=== PATIENT | female | born 1965 | race African-American/Black ===

== ENCOUNTER → 2024-04-23 15:03 | Outpatient (REF) | payer OTHER, SELFPAY | LOC: RAD 15:03 | PROVIDERS: ATTENDING PHYSICIAN Nurse Practitioner Adult Health; FAMILY PHYSICIAN Nurse Practitioner Adult Health | DX: M54.2 Cervicalgia (principal) | CPT/HCPCS: 72040 ==

== ENCOUNTER → 2024-05-17 15:32 | Outpatient (REF) | payer OTHER, SELFPAY | LOC: RAD 15:32 | PROVIDERS: ATTENDING PHYSICIAN Nurse Practitioner Adult Health | DX: M25.511 Pain in right shoulder (principal) | CPT/HCPCS: 73030 ==

== ENCOUNTER 2024-06-11 03:00 | Inpatient (IN) | payer OTHER, SELFPAY ==
[2024-06-10 20:27] VITALS: BMI 23.1
[2024-06-10 20:50] VITALS: BP 130/81
[2024-06-10 21:14] LABS: Urine Albumin 3+ (Neg - Trace); Urine Bilirubin Negative (Negative); Urine Character Slightly Cloudy (Clear); Urine Color Amber; Urine Glucose 4+ (Negative); Urine Ketone 2+ (Negative); Urine Leukocyte 3+ (Negative); Urine Nitrite Positive (Negative); Urine Occult Blood 4+ (Negative); Urine Urobilinogen 1+ (Neg - 1+)
[2024-06-10 21:16] LABS: % Basophils 0.4 % (0-2); % Eosinophils 0.4 % (0-6); % Immature Granulocytes 0.4 % (0-0.5); % Lymphocytes 8.5 % (20.5-51.1); % Monocytes 12.9 % (1.7-9.3); % Neutrophils 77.4 % (42.2-75.2); Absolute Basophils 0.1 10^3/uL (0-0.2); Absolute Eosinophils 0.1 10^3/uL (0-0.7); Absolute Immature Granulocytes 0.1 10^3/uL (0-0.05); Absolute Lymphocytes 1.1 10^3/uL (1.2-3.4); Absolute Monocytes 1.7 10^3/uL (0.1-0.6); Absolute Neutrophils 10.4 10^3/uL (1.4-6.5); Hematocrit 37.2 % (37.0-47.0); Hemoglobin 12.8 g/dL (12.0-16.0); Mean Corp Hgb Conc. 34.4 g/dL (33.0-37.0); Mean Corpuscular Hgb 27.8 pg (27.0-31.0); Mean Corpuscular Volume 80.9 fL (81.0-99.0); Nucleated Red Blood Cells % 0 %; Platelet Count 206 10^3/uL (130-400); Red Cell Dist. Width 14.6 % (11.5-14.5); White Blood Cell Count 13.5 10^3/uL (4.8-10.8)
[2024-06-10 21:22] LABS: Urine Red Blood Cell >100 /HPF (0-2); Urine Squamous Cell 0-2 /LPF (Few); Urine White Cell >100 /HPF (0-5)
[2024-06-10 21:23] LABS: Urine Amorphous Seen; Urine Bacteria Few (Negative); Urine Yeast Few (Negative)
[2024-06-10 21:40] LABS: ALT (SGPT) 79 U/L (0-35); AST (SGOT) 64 U/L (14-36); Albumin 3.7 g/dl (3.5-5.0); Alkaline Phosphatase 257 U/L (38-126); Blood Urea Nitrogen 23 mg/dl (7-17); Calcium 9.4 mg/dl (8.4-10.2); Carbon Dioxide 27 mmol/L (22-30); Chloride 99 mmol/L (98-107); Glucose 122 mg/dl (70-99); Lipase 341 U/L (23-300); Potassium 3.9 mmol/L (3.5-5.1); Sodium 137 mmol/L (135-145); Total Bilirubin 1.5 mg/dl (0.2-1.3); eGFR 58.24
[2024-06-10 23:05] VITALS: BP 143/68
[2024-06-10 23:29] LABS: Lactic Acid 1.2 mmol/L (0.7-2.0)
[2024-06-10] MEDS: NSS 1000 IV (23:40)
--- NOTE | 2024-06-10 23:41 | ED.GENMED ---
History of Present Illness
General
Chief Complaint: Urinary Symptoms
Source: patient and spouse
Time Seen by Provider: 06/10/24 22:07
History of Present Illness
History of Present Illness:
This is a 58-year-old female with a history of diabetes and hypertension who presents with subjective fevers, low back pain, nausea and bodyaches. She also has had some flank pain. Denies dysuria but admits to hematuria. Patient has had nausea
but no significant vomiting. Has never had a UTI in the past. No injury. She also has been weak
Past History
Past History
ED Past Medical History: HTN and NIDDM
Phy Exam
Physical Exam
Physical Exam:
CONSTITUTIONAL Patient alert and oriented to person, place and time. Well-appearing. Vital signs reviewed. Temperature 101.4 on my exam
HEAD atraumatic, normocephalic.
EYES eyelids normal to inspection, Extraocular muscles intact, Conjunctiva normal, Sclera normal.
NECK normal range of motion, Trachea midline, no jugular venous distention.
RESPIRATORY CHEST No respiratory distress noted, Chest expansion equal, Bilateral breath sounds clear.
CARDIOVASCULAR regular tachycardia
ABDOMEN abdomen nontender, Bowel sounds normal. No distention.
BACK normal inspection, no obvious deformities, no true CVA tenderness
UPPER EXTREMITY range of motion normal, Motor strength normal, no cyanosis, no edema.
LOWER EXTREMITY range of motion normal, Motor strength normal, no cyanosis, no edema.
NEURO Speech normal, No focal motor deficits, [place] coma scale 15, Memory normal, Cranial Nerves intact to screening exam.
SKIN skin warm, dry, and normal in color.
Course
Orders/Labs/Results
Orders:
Orders
06/10/24 21:03
IV Insert/Care/Rem.- Treatment PRN
Straight cath- Treatment ONCE
06/10/24 21:07
Complete Blood Count/With Diff Urgent
Comprehensive Metabolic Panel Urgent
Lipase Urgent
Urinalysis Reflex To Culture Urgent
Date Specimen was Collected: 06/10/24
Time Specimen was Collected: 21:03
Urine Microscopic Reflex Cult Urgent
Urine Culture Urgent
MARLENE Source: U
Specimen Description:
Date Specimen was Collected: 06/10/24
Time Specimen was Collected: 21:03
06/10/24 22:41
0.9% Sodium Chloride 1000 ml [Nss] 1,000 ml IV BOLUS
Acetaminophen [Tylenol] 1,000 mg PO NOW STA
06/10/24 23:07
Lactic Acid Q4H
Comment: CANCEL 2nd LACTIC ACID IF 1st LACTIC ACID IS LESS THAN 2
Blood Culture Q30M
MARLENE Source: Blood/Venous
Specimen Description:
06/10/24 23:14
CefTRIAXone [Rocephin] 2,000 mg IV NOW STA
06/10/24 23:25
Blood Culture Q30M
MARLENE Source: Blood/Venous
Specimen Description:
Sterile Water [Sterile Water For Injection] 20 ml IV NOW STA
06/11/24 00:01
CT Abd/pel Without Iv Or Oral Urgent
Reason For Exam: flank pain, fever
06/11/24 02:38
Admit/Transfer Patient As Directed
Co-Sign Provider:
Level of Care: Inpatient admission
Assign to:: Medical/Surgical
Physician / Group: Mike
Diagnosis: Pyelonephritis / Sepsis
Reason for Hospitalization: Pyelonephritis / Sepsis
Expected length of stay greater than two midnights?: Yes
ELOS- Estimated Length of Stay in days: 2
I certify the patient meets the requirements for IP care: Yes
PRN Pain Medication Management As Directed
May give lesser potent ordered pain med per pt: Yes
preference::
Protocol:: Medication orders for pain may be administered in a
manner that supports deferring to patient preference
when the pt is:
- Requesting an ordered lesser potent pain medication.
Least to most potent pain medications are defined
as: acetaminophen < NSAID < tramadol < opioids
(morphine, oxycodone, hydromorphone).
- Requesting a lesser dose of the same medication IF
ORDERED.
- Requesting a less intrusive route of administration
if both routes are prescribed by the provider (PO <
IV).
06/11/24 02:39
Code Status As Directed
Resuscitation Status: Full Code
06/11/24 03:54
0.9% Sodium Chloride 1000 ml [Nss] 1,000 ml IV 125 mls/hr
Acetaminophen [Tylenol] 650 mg PO Q4HPRN PRN
Dextrose 50%-Water [Dextrose 50% Syringe] 12.5 grams IV [id number] PRN
Glucagon [GlucaGen] 1 mg IM PRN PRN
Ketorolac [Toradol] 10 mg IV Q6HPRN PRN
Ondansetron Injectable [Zofran] 4 mg IV Q6HPRN PRN
06/11/24 03:54
Activity As Directed
Activity Level: Ambulate
Bedside Glucose Monitoring As Directed
Frequency: AC&HS
Additional Instructions:: Change to q6h if pt on TPN, tube feeding or not eating
I/O [Intake/ Output] As Directed
Frequency: Per unit guidelines
Pneumatic Compression Sleeves As Directed
Type: Knee high
Vital Signs As Directed
Frequency: Per unit guidelines
DX Deep Vein Thrombosis Video Routine
06/11/24 04:49
Basic Metabolic Panel IN AM
Glycohemoglobin (HgbA1c) IN AM
06/11/24 Breakfast
2000 calorie (17 carb) Diabetic
At Your Request: Full Participation
Does patient need a safe tray?: No
06/11/24 07:30
Insulin Aspart Corrective Low [Novolog Flexpen-Low Resistance] See Protocol SC AC
06/11/24 22:00
Atorvastatin [Lipitor] 40 mg PO HS
CefTRIAXone [Rocephin] 1,000 mg IV Q24H
Clonidine [Catapres] 0.2 mg PO HS
Abnormal Lab Results
06/10/24
21:07
WBC 13.5 H 10^3/uL
(4.8-10.8)
MCV 80.9 L fL
(81.0-99.0)
RDW 14.6 H %
(11.5-14.5)
Abs Immat Gran (auto) 0.1 H 10^3/uL
(0-0.05)
Absolute Neuts (auto) 10.4 H 10^3/uL
(1.4-6.5)
Absolute Lymphs (auto) 1.1 L 10^3/uL
(1.2-3.4)
Absolute Monos (auto) 1.7 H 10^3/uL
(0.1-0.6)
Neutrophils % 77.4 H %
(42.2-75.2)
Lymphocytes % 8.5 L %
(20.5-51.1)
Monocytes % 12.9 H %
(1.7-9.3)
BUN 23 H mg/dl
(7-17)
Creatinine 1.1 H mg/dL
(0.6-1.0)
Glucose 122 H mg/dl
(70-99)
Total Bilirubin 1.5 H mg/dl
(0.2-1.3)
AST 64 H U/L
(14-36)
ALT 79 H U/L
(0-35)
Alkaline Phosphatase 257 H U/L
(38-126)
Lipase 341 H U/L
(23-300)
Urine Ketones 2+ A
(Negative)
Ur Occult Blood Reflex 4+ A
(Negative)
Urine Nitrite (Reflex) Positive A
(Negative)
Leukocyte Esterase Rfl 3+ A
(Negative)
Urine RBC >100 A /HPF
(0-2)
Urine WBC (Reflex) >100 A /HPF
(0-5)
Urine Bacteria (Reflex) Few A
(Negative)
Urine Yeast Few A
(Negative)
Urine Glucose 4+ A
(Negative)
Urine Albumin (Reflex) 3+ A
(Neg - Trace)
06/10/24 21:07
06/10/24 21:07
Vital Signs
Initial and Last Documented VS:
Initial Vital Signs
Temp Pulse Resp BP Pulse Ox
100.2 F 104 20 130/81 98
06/10/24 20:50 06/10/24 20:50 06/10/24 20:50 06/10/24 20:50 06/10/24 20:50
Last Documented Vital Signs
Temp Pulse Resp BP Pulse Ox
98.9 F 88 18 130/70 96
06/11/24 03:00 06/11/24 03:00 06/11/24 03:00 06/11/24 03:00 06/11/24 03:30
MDM/Problems Addressed
MDM/Problems Addressed:
Urinary tract infection, diabetes
*Radiology
Radiology exam reviewed: preliminary read by ED provider (No free air and no obvious hydronephrosis) and radiology read reviewed
*Pulse Oximetry
Patient hypoxic: no
*Critical Care Note
Total Time (30-74mins, 75-104mins- exclusive of procedures): Not Applicable
Data Reviewed
Source: patient and spouse
Patient Management
Discussion with other providers: Hospitalist
Escalation/DeEscalation of care consider admission/obs:
50-year-old female presents with fevers and bodyaches. Found to have UTI suspect pyelonephritis. In light of being a diabetic I think admission for IV antibiotics is reasonable and safe. Blood culture sent. Blood pressure currently stable. On
reassessment feels mostly unchanged but does feel little bit better. No obstructive process by CAT scan
ED Attending Note
-
Portions of this chart may have been created with voice recognition software.� Occasional wrong word or��sound alike� substitutions may have occurred due to the inherent limitations of voice recognition software.
Discharge Plan
Departure
Patient Disposition: Admit
Date of Disposition: 06/11/24
Time of Disposition: 01:40
Admit to: Med/Surg
Presentation/result/management discussed w/ accepting MD/DO: Hospitalist
Discharge Problem:
Pyelonephritis, Diabetes
Interventions
Interventions:
*Risk Screen - Suicide Last Done: 06/10/24 20:50
*General Assessment Last Done: 06/10/24 20:50
*Neglect/Abuse Screening Last Done: 06/10/24 20:50
*ED- Fall Risk Assessment Last Done: 06/10/24 20:50
*ED COVID-19 Vaccine History Last Done: 06/10/24 20:50
ED-Female Genitourinary Assessment Last Done: 06/11/24 00:10
[2024-06-10] MEDS: ROCEPHIN 2000 MG IV (23:47)
[2024-06-10] MEDS: TYLENOL 1000 MG PO (23:47)
[2024-06-10] MEDS: STERILE WATER FOR INJECTION 20 ML IV (23:48)
[2024-06-11] VITALS (10 sets, daily range): BP systolic 111–153; BP diastolic 67–87; BMI 22.3
--- NOTE | 2024-06-11 02:43 | HPS.HSE ---
Family Physician
-
Family Physician: Betina Rivero
Chief Complaint
-
Fever / Flank Pain
History of Present Illness
Patient is a 58y F with PMH significant for hypertension and DM-II who presents to ED complaining of L flank pain, hematuria, fever and malaise. Patient states that her symptoms started initially on when she noted some blood in the
urine. She had no dysuria, frequency, etc. Over the next few days, patient developed generalized malaise, fatigue and L flank discomfort. She had nausea, shaking chills and fever at home. With persistent symptoms she presented to the ED for
further evaluation.
Medical History
Past Medical History
Past Medical History: Reports Other
Additional Past Medical History:
Hypertension
DM-II
Past Surgical History: Reports None
Social History
Tobacco: Smoker (Current some day smoker. < 20 pack years total.)
Alcohol: Occasional
Drug: None
Personal:
Living: With Family
Family History
Family History: Other (Father: DM Mother: DM, ESRD)
Allergies / Home Medications
Allergies reflects when Allergies were last updated in [facility].
Home Medications with original date entered in [facility]
Allergy/Medication List:
Allergies
Allergy/AdvReac Type Severity Reaction Status Date / Time
Penicillins Allergy Unknown Unknown Verified 06/10/24 23:15
Home Medications
atorvastatin 40 mg tablet 40 mg PO HS 06/11/24
bisoprolol 10 mg-hydrochlorothiazide 6.25 mg tablet 1 tab PO DAILY 06/11/24
clonidine HCl 0.2 mg tablet 0.2 mg PO HS 06/11/24
empagliflozin 25 mg tablet (Jardiance) 25 mg PO DAILY 06/11/24
metformin 500 mg tablet,extended release 24hr (osmotic) 500 mg PO BID 06/11/24
semaglutide 0.25 mg or 0.5 mg (2 mg/3 mL) subcutaneous pen injector (Ozempic) 0.5 mg SC QWEEK 06/11/24
Review of Systems
-
History Source: Patient
A 12 point ROS was completed and negative except as noted: Yes
Constitutional: Reports Fever, Fatigue and Chills
EENT: Denies Sore Throat
Respiratory: Denies Cough or Trouble Breathing
Cardiac: Denies Chest Pain or Palpitations
Abdomen/GI: Reports Nausea; Denies Abdominal Pain, Vomiting, Diarrhea, Constipated, Bloody Stools or Black Stools
: Reports Flank Pain and Bleeding; Denies Dysuria or Frequency
Musculoskeletal: Denies Joint Pain or Edema
Neurological: Denies Dizzy or Headache
Psych: Denies Depression or Anxiety
Physical Exam
Vital Signs
Vital Signs
Temp Pulse Resp BP Pulse Ox
98.8 F 94 18 127/67 96
06/11/24 01:57 06/11/24 01:57 06/11/24 01:57 06/11/24 01:57 06/11/24 01:57
Physical Exam
General: Other (58y F in no acute distress.)
HEENT: Moist mucous membranes and PERRLA
Respiratory: Clear; No Wheezes, Rales or Rhonchi
Cardiac: S1/S2 and Regular Rhythm; No Murmur
GI: Soft, Non Tender, Non Distended and Normal Bowel Sounds
Genito-urinary: No costovertebral tender
Musculoskeletal: No Clubbing, No Cyanosis and No Edema
Neuro: AO x 3
Laboratory Results
-
06/10/24 21:07
06/10/24 21:07
Laboratory Results
Lactic Acid Cancelled 06/11/24 02:45
Total Bilirubin 1.5 mg/dl (0.2-1.3) H 06/10/24 21:07
AST 64 U/L (14-36) H 06/10/24 21:07
ALT 79 U/L (0-35) H 06/10/24 21:07
Alkaline Phosphatase 257 U/L (38-126) H 06/10/24 21:07
Lipase 341 U/L (23-300) H 06/10/24 21:07
Impression/Plan
-
A/P: Patient is a 58y F with PMH significant for HTN and DM-II who presents to ED for evaluation of hematuria, flank pain and fevers / chills.
Left Pyelonephritis
Sepsis secondary to the above
- Admit for further evaluation and treatment.
- Patient presents with fever, tachycardia, leukocytosis and UA / imaging consistent with pyelonephritis.
- IV abx with ceftriaxone pending urinary cultures.
- Supportive care including IVFs, antipyretics, pain control, etc.
- Follow for clinical improvement.
Benign Hypertension
- Stable on multidrug regimen.
- Continue current medications with holding parameters.
DM-II
- Stable. Hold PO medications acutely.
- Follow glucose and cover with SSI as needed.
- Update A1C.
Abnormal LFTs
- Unclear etiology of LFT abnormalities - ? med effect from Ozempic, etc.
- Imaging in the ED with no biliary / hepatic abnormalities.
- Follow for any changes in labs or development of any new symptoms.
DVT Prophylaxis: SCDs
Code Status: Full
[2024-06-11 05:23] LABS: Blood Urea Nitrogen 23 mg/dl (7-17); Calcium 8.4 mg/dl (8.4-10.2); Carbon Dioxide 22 mmol/L (22-30); Chloride 103 mmol/L (98-107); Estimated Creatinine Clearance 60 ml/min; Glucose 156 mg/dl (70-99); Potassium 3.5 mmol/L (3.5-5.1); Sodium 138 mmol/L (135-145); eGFR > 60.00
[2024-06-11] MEDS: NSS 1000 IV ×3 (05:30→18:09)
[2024-06-11 05:34] LABS: Hematocrit 29.9 % (37.0-47.0); Hemoglobin 10.5 g/dL (12.0-16.0); Mean Corp Hgb Conc. 35.1 g/dL (33.0-37.0); Mean Corpuscular Hgb 28.2 pg (27.0-31.0); Mean Corpuscular Volume 80.2 fL (81.0-99.0); Mean Platelet Volume 10.1 fL (7.4-10.4); Platelet Count 166 10^3/uL (130-400); Red Blood Cell Count 3.73 10^6/uL (4.20-5.40); Red Cell Dist. Width 14.6 % (11.5-14.5); White Blood Cell Count 12.4 10^3/uL (4.8-10.8)
[2024-06-11 08:21] LABS: Glycohemoglobin (HgbA1c) 6.3 % (4.0-5.6)
[2024-06-11 08:37] LABS: Glucose - Point of Care 125 mg/dl (70-99)
[2024-06-11] MEDS: NOVOLOG FLEXPEN-LOW RESISTANCE SC ×3 (08:38→18:08)
[2024-06-11] MEDS: ORETIC 6.25 MG PO (08:39)
[2024-06-11] MEDS: ZEBETA 10 MG PO (08:39)
[2024-06-11] MEDS: TYLENOL 650 MG PO ×2 (08:41→18:19)
--- NOTE | 2024-06-11 10:28 | PTCARENOTE ---
pt admitted to [facility] hold, awaiting bed. AOx3 c/o mild flank pain. LCTA b/l on RA. rrr, abd soft nt +bsx4 skin cdi, no edema +pp b/l. call morrison in reach. PRN tylenol administered for pain. See MAR
[2024-06-11 13:01] LABS: Glucose - Point of Care 127 mg/dl (70-99)
--- NOTE | 2024-06-11 13:29 | PTCARENOTE ---
pt transferred to , report tubed to floor.
--- NOTE | 2024-06-11 14:30 | W.PN.HOSP.TC ---
Addendum entered and electronically signed by Liane Murray MD 06/11/24 15:06:
I saw and evaluated the patient independently. I reviewed the resident�s note and agree with findings and plan as documented by Dr. Garcia.
GENERAL: well developed, well nourished, female in no apparent distress
HEENT: NC/AT--no O2 requirements
HEART: regular rate and rhythm, +S1, +S2
LUNGS : clear to auscultation bilaterally
ABDOM: soft, nontender, nondistended, + bowel sounds
EXT: no cyanosis, clubbing, or edema
NEUROLOGIC: grossly intact
: no flank tenderness
Sepsis on presentation secondary to left sided pyelonephritis/ascending UTI--CT abdomen/pelvis findings consistent with pyelonephritis or ascending UTI--cont ceftriaxone--await cultures
Essential hypertension--Continue current therapy with clonidine, bisoprolol fumarate, hydrochlorothiazide--Blood pressures currently managed well
Type 2 diabetes--Hb A1c at 6.3%--Sliding scale insulin as needed, Accu-Cheks--Holding home medications of Jardiance, metformin--Also started on Ozempic recently
Elevated LFTs--Possibly secondary from sepsis--Might also be contributed to by her medications including Ozempic, metformin--Continue monitoring CMP and trend LFTs for now
DVT proph--SCDs
Code status--Full code
Original Note:
Today's Communication/Plan
-
Continue with IV fluids and antibiotic treatment. Continue supportive measures. Continue monitoring sugar levels and give insulin as needed.
Assessment / Plan
Assessment / Plan
Assessment:
50-year-old female with a past medical history of hypertension and type 2 diabetes presented to the [facility] ED on 06/10/24 due to recent history of increased left flank plain, hematuria, fever and malaise. The symptoms had started
initially last week when she noticed some blood in her urine. This continued to get worse and she developed left flank pain over the weekend along with her fever and general fatigue and malaise. In the ED she was found to have fever, be
tachycardic, and have leukocytosis. On the CT abdomen/pelvis, she was found to have mild perinephric stranding surrounding the left kidney which were consistent with possible pyelonephritis/ascending urinary tract infection. Patient was started on
ceftriaxone and IV fluids in the ED and admitted to the hospital. Currently after treatment patient is feeling much better and reports that her symptoms are much improved.
CT Abd/pel Without Iv Or Oral (06/11/2024):
1. Mild perinephric stranding surrounding the left kidney, and stranding surrounding the proximal left ureter. No hydronephrosis or stone. Findings may related to pyelonephritis/ascending urinary tract infection.
2. Mild wall thickening involving the urinary bladder, which may be related to nondistention or mild cystitis.
3. Colonic diverticulosis without evidence of diverticulitis.
4. Cholelithiasis without evidence of acute cholecystitis.
Plan:
# Sepsis on presentation secondary to left sided pyelonephritis/ascending UTI
-Patient presented with fever/tachycardia/leukocytosis and met the criteria for sepsis
-CT abdomen/pelvis findings as above, consistent with pyelonephritis or ascending UTI
-Patient started on IV antibiotics with ceftriaxone pending urinary cultures
-Awaiting blood cultures as well
-Patient to continue with IV fluid therapy along with antinausea medications, and pain control
-Patient able to tolerate diet, we will continue
# Benign hypertension
-Continue current therapy with clonidine, bisoprolol fumarate, hydrochlorothiazide
-Blood pressures currently managed well
# Type 2 diabetes
-Hb A1c at 6.3%
-Sliding scale insulin as needed, Accu-Cheks
-Holding home medications of Jardiance, metformin
-Also started on Ozempic recently
# Elevated LFTs
-Possibly secondary from sepsis
-Might also be contributed to by her medications including Ozempic, metformin
-Continue monitoring CMP and trend LFTs for now
DVT prophylaxis: SCDs
Full code
Anticipated Discharge: 24 - 48 hours
Subjective/Interval History
-
Date of Service: June 11, 2024
Patient was feeling much better when seen in the ED this morning. Reported that her flank pain has gotten much better and she no longer has any fever. Reports no nausea or vomiting at this time either and is available to tolerate food. Reports
that her flank pain has reduced now to around 2/10.
Objective Data
-
Labs:
Laboratory Results
06/11/24 06/11/24
04:49 05:22
WBC Cancelled 12.4 H
Hgb Cancelled 10.5 L
Hct Cancelled 29.9 L
Plt Count Cancelled 166
Sodium 138
Potassium 3.5
Chloride 103
Carbon Dioxide 22
BUN 23 H
Creatinine 1.0
Glucose 156 H
Calcium 8.4
Vital Signs:
Vital Signs
Temp Pulse Resp BP Pulse Ox
97.8 F 82 18 131/76 98
06/11/24 14:00 06/11/24 14:00 06/11/24 14:00 06/11/24 14:00 06/11/24 14:00
Review of Systems
-
History Source: Patient
Constitutional: Denies Fever, Fatigue, Chills or Weakness
EENT: Reports No Symptoms Reported
Respiratory: Denies Cough, Trouble Breathing or Wheezing
Cardiac: Denies Chest Pain, Diaphoresis or Palpitations
Abdomen/GI: Denies Abdominal Pain, Nausea, Vomiting or Diarrhea
Genitourinary: Reports Flank Pain (Around 2 out 10 in intensity around her left side)
Musculoskeletal: Reports No Symptoms
Skin: Reports No Symptoms
Neuro: Denies Headache, Weakness or Lightheadedness
Physical Exam
-
General: Well Developed, Well Nourished, No Apparent Distress, Comfortable and Conversant
HEENT: Normocephalic and Atraumatic
Respiratory: Clear to Auscultation and Non Labored Respirations
Cardiac: Regular Rhythm and S1/S2
GI: Soft, Nontender and Nondistended
Genito-urinary: Costovertebral Angle Tend (2 out of 10 intensity of pain in the left flank)
Musculoskeletal: No Clubbing, No Cyanosis and No Edema
Skin: Warm
Neuro: Awake, Alert and Oriented
Psych: Calm
Data Reviewed
-
CT Scan: Report Reviewed by me, Discussed with Physician and Discussed with Patient
Labs: Labs Reviewed by me, Discussed with Physician and Discussed with Patient
--- NOTE | 2024-06-11 16:23 | CM ---
Patient seen at bedside in ED with physicians. Patient now moving to [address]. Patient states that she lives with her . Patient has 2 story home, no DME. Patient now independent living with is her discharge plan. CM will continue to
follow for discharge planning needs.
Plan; home with no needs anticipated.
[2024-06-11 16:30] LABS: Glucose - Point of Care 129 mg/dl (70-99)
[2024-06-11] MEDS: KCL 40 MEQ PO (18:08)
[2024-06-11] MEDS: CATAPRES 0.2 MG PO (20:57)
[2024-06-11] MEDS: LIPITOR 40 MG PO (20:57)
[2024-06-11] MEDS: ROCEPHIN 1000 MG IV (21:00)
[2024-06-11] MEDS: STERILE WATER FOR INJECTION 10 ML IV (21:00)
[2024-06-11 21:05] LABS: Glucose - Point of Care 160 mg/dl (70-99)
[2024-06-12] MEDS: NSS 1000 IV (03:38)
[2024-06-12 06:48] LABS: Hematocrit 30.2 % (37.0-47.0); Hemoglobin 10.1 g/dL (12.0-16.0); Mean Corp Hgb Conc. 33.4 g/dL (33.0-37.0); Mean Corpuscular Hgb 27.5 pg (27.0-31.0); Mean Corpuscular Volume 82.3 fL (81.0-99.0); Mean Platelet Volume 10.4 fL (7.4-10.4); Platelet Count 167 10^3/uL (130-400); Red Blood Cell Count 3.67 10^6/uL (4.20-5.40); Red Cell Dist. Width 14.9 % (11.5-14.5); White Blood Cell Count 6.8 10^3/uL (4.8-10.8)
[2024-06-12 07:18] LABS: ALT (SGPT) 61 U/L (0-35); AST (SGOT) 52 U/L (14-36); Albumin 2.9 g/dl (3.5-5.0); Alkaline Phosphatase 209 U/L (38-126); Blood Urea Nitrogen 14 mg/dl (7-17); Calcium 8.2 mg/dl (8.4-10.2); Carbon Dioxide 26 mmol/L (22-30); Chloride 111 mmol/L (98-107); Estimated Creatinine Clearance 75 ml/min; Glucose 167 mg/dl (70-99); Potassium 4.1 mmol/L (3.5-5.1); Sodium 145 mmol/L (135-145); Total Bilirubin 0.6 mg/dl (0.2-1.3); Total Protein 5.7 g/dl (6.3-8.2); eGFR > 60.00
[2024-06-12 07:46] VITALS: BP 118/68
[2024-06-12 07:57] LABS: Glucose - Point of Care 191 mg/dl (70-99)
[2024-06-12] MEDS: ZEBETA 10 MG PO (08:45)
[2024-06-12] MEDS: ORETIC 6.25 MG PO (08:45)
[2024-06-12] MEDS: NOVOLOG FLEXPEN-LOW RESISTANCE 1 UNITS SC (09:28)
--- NOTE | 2024-06-12 11:14 | W.PN.HOSP.TC ---
Addendum entered and electronically signed by Liane Murray MD 06/12/24 13:25:
I saw and evaluated the patient independently. I reviewed the resident�s note and agree with findings and plan as documented by Dr. Garcia.
GENERAL: well developed, well nourished, female in no apparent distress
HEENT: NC/AT--no O2 requirements
HEART: regular rate and rhythm, +S1, +S2
LUNGS : clear to auscultation bilaterally
ABDOM: soft, nontender, nondistended, + bowel sounds
EXT: no cyanosis, clubbing, or edema
NEUROLOGIC: grossly intact
: no flank tenderness
Sepsis on presentation secondary to left sided pyelonephritis/ascending E. coli UTI--CT abdomen/pelvis findings consistent with pyelonephritis or ascending UTI--cont ceftriaxone--blood cultures neg--urine culture positive for E. coli--await
sensitivities
Essential hypertension--Continue current therapy with clonidine, bisoprolol fumarate, hydrochlorothiazide--Blood pressures currently managed well
Type 2 diabetes--Hb A1c at 6.3%--Sliding scale insulin as needed, Accu-Cheks--Holding home medications of Jardiance, metformin--Also started on Ozempic recently
Elevated LFTs--Possibly secondary from sepsis--Might also be contributed to by her medications including Ozempic, metformin--Continue monitoring CMP and trend LFTs for now
DVT proph--SCDs
Code status--Full code
Original Note:
Today's Communication/Plan
-
Continue current IV antibiotics until sensitivities come back for current infection. Continue with current diet and monitor for any worsening symptoms like fever or flank pain
Assessment / Plan
Assessment / Plan
Assessment:
50-year-old female with a past medical history of hypertension and type 2 diabetes presented to the [facility] ED on 06/10/24 due to recent history of increased left flank plain, hematuria, fever and malaise. The symptoms had started
initially last week when she noticed some blood in her urine. This continued to get worse and she developed left flank pain over the weekend along with her fever and general fatigue and malaise. In the ED she was found to have fever, be
tachycardic, and have leukocytosis. On the CT abdomen/pelvis, she was found to have mild perinephric stranding surrounding the left kidney which were consistent with possible pyelonephritis/ascending urinary tract infection. Patient was started on
ceftriaxone and IV fluids in the ED and admitted to the hospital. Currently after treatment patient is feeling much better and reports that her symptoms are much improved. Once sensitivities are back for patient's UTI/pyelonephritis patient will
be able to go home on oral antibiotics.
CT Abd/pel Without Iv Or Oral (06/11/2024):
1. Mild perinephric stranding surrounding the left kidney, and stranding surrounding the proximal left ureter. No hydronephrosis or stone. Findings may related to pyelonephritis/ascending urinary tract infection.
2. Mild wall thickening involving the urinary bladder, which may be related to nondistention or mild cystitis.
3. Colonic diverticulosis without evidence of diverticulitis.
4. Cholelithiasis without evidence of acute cholecystitis.
Plan:
# Sepsis on presentation secondary to left sided pyelonephritis/ascending UTI
-Patient presented with fever/tachycardia/leukocytosis and met the criteria for sepsis
-CT abdomen/pelvis findings as above, consistent with pyelonephritis or ascending UTI
-Patient started on IV antibiotics with ceftriaxone
-Urine culture showed growth with E. coli, awaiting sensitivities
-Blood culture showed no growth
-Patient to continue with IV fluid therapy along with antinausea medications, and pain control
-Patient able to tolerate diet, we will continue
-Can discontinue IV fluids
# Benign hypertension
-Continue current therapy with clonidine, bisoprolol fumarate, hydrochlorothiazide
-Blood pressures currently managed well
# Type 2 diabetes
-Hb A1c at 6.3%
-Sliding scale insulin as needed, Accu-Cheks
-Holding home medications of Jardiance, metformin
-Also started on Ozempic recently
# Elevated LFTs
-Possibly secondary from sepsis
-Might also be contributed to by her medications including Ozempic, metformin
-LFTs trending down slowly
-Continue monitoring CMP and trend LFTs for now
DVT prophylaxis: SCDs
Full code
Anticipated Discharge: Within 24 hours
Subjective/Interval History
-
Date of Service: June 12, 2024
Patient has been feeling well and reports no concerns today. Reports no fevers, chills, and has no nausea or vomiting either. Reports that her flank pain has resolved as well.
Objective Data
-
Labs:
Laboratory Results
06/12/24
06:07
WBC 6.8
Hgb 10.1 L
Hct 30.2 L
Plt Count 167
Sodium 145
Potassium 4.1
Chloride 111 H
Carbon Dioxide 26
BUN 14
Creatinine 0.8
Glucose 167 H
Calcium 8.2 L
Total Bilirubin 0.6
AST 52 H
ALT 61 H
Alkaline Phosphatase 209 H
Vital Signs:
Vital Signs
Temp Pulse Resp BP Pulse Ox
99.1 F 100 18 118/68 98
06/12/24 07:46 06/12/24 07:46 06/12/24 07:46 06/12/24 07:46 06/12/24 07:46
I&O
06/11/24 06/12/24 06/13/24
06:59 06:59 06:59
Intake Total 2700 / 2700
Balance 2700 / 2700
Review of Systems
-
History Source: Patient
Constitutional: Denies Fever, Fatigue, Chills or Weakness
EENT: Reports No Symptoms Reported
Respiratory: Denies Cough, Trouble Breathing or Wheezing
Cardiac: Denies Chest Pain, Diaphoresis or Palpitations
Abdomen/GI: Denies Abdominal Pain, Nausea, Vomiting or Diarrhea
Genitourinary: Denies Flank Pain
Musculoskeletal: Reports No Symptoms
Skin: Reports No Symptoms
Neuro: Denies Headache, Weakness or Lightheadedness
Physical Exam
-
General: Well Developed, Well Nourished, No Apparent Distress, Comfortable and Conversant
HEENT: Normocephalic and Atraumatic
Respiratory: Clear to Auscultation and Non Labored Respirations
Cardiac: Regular Rhythm and S1/S2
GI: Soft, Nontender and Nondistended
Genito-urinary: No Costovertebral Tender
Musculoskeletal: No Clubbing, No Cyanosis and No Edema
Skin: Warm
Neuro: Awake, Alert and Oriented
Psych: Calm
Data Reviewed
-
Labs: Labs Reviewed by me, Discussed with Physician and Discussed with Patient
[2024-06-12 12:28] LABS: Glucose - Point of Care 115 mg/dl (70-99)
[2024-06-12] MEDS: NOVOLOG FLEXPEN-LOW RESISTANCE SC ×2 (12:33→16:59)
--- NOTE | 2024-06-12 15:16 | CM ---
Patient seen at bedside. Patient plan is for discharge home tomorrow, no needs anticipated at this time. CM will continue to follow for discharge planning needs.
Plan; home with no needs anticipated at this time
[2024-06-12 15:52] VITALS: BP 118/76
[2024-06-12 16:40] LABS: Glucose - Point of Care 121 mg/dl (70-99)
[2024-06-12] MEDS: ROCEPHIN 1000 MG IV (21:16)
[2024-06-12] MEDS: CATAPRES 0.2 MG PO (21:17)
[2024-06-12] MEDS: STERILE WATER FOR INJECTION 10 ML IV (21:17)
[2024-06-12] MEDS: LIPITOR 40 MG PO (21:17)
[2024-06-12 21:56] LABS: Glucose - Point of Care 182 mg/dl (70-99)
[2024-06-12 23:37] VITALS: BP 109/62
[2024-06-13 07:25] LABS: Hematocrit 32.5 % (37.0-47.0); Hemoglobin 10.9 g/dL (12.0-16.0); Mean Corp Hgb Conc. 33.5 g/dL (33.0-37.0); Mean Corpuscular Hgb 27.6 pg (27.0-31.0); Mean Corpuscular Volume 82.3 fL (81.0-99.0); Mean Platelet Volume 10.4 fL (7.4-10.4); Platelet Count 212 10^3/uL (130-400); Red Blood Cell Count 3.95 10^6/uL (4.20-5.40); Red Cell Dist. Width 14.7 % (11.5-14.5); White Blood Cell Count 5.6 10^3/uL (4.8-10.8)
[2024-06-13 07:55] VITALS: BP 111/73
[2024-06-13 07:56] LABS: Glucose - Point of Care 125 mg/dl (70-99)
[2024-06-13] MEDS: NOVOLOG FLEXPEN-LOW RESISTANCE SC ×2 (08:00→12:04)
[2024-06-13 08:16] LABS: Blood Urea Nitrogen 13 mg/dl (7-17); Calcium 8.9 mg/dl (8.4-10.2); Carbon Dioxide 29 mmol/L (22-30); Chloride 109 mmol/L (98-107); Estimated Creatinine Clearance 75 ml/min; Glucose 117 mg/dl (70-99); Potassium 4.4 mmol/L (3.5-5.1); Sodium 145 mmol/L (135-145); eGFR > 60.00
[2024-06-13] MEDS: ZEBETA 10 MG PO (08:31)
[2024-06-13] MEDS: ORETIC 6.25 MG PO (08:31)
[2024-06-13 11:45] LABS: Glucose - Point of Care 141 mg/dl (70-99)
[2024-06-13] MEDS: STERILE WATER FOR INJECTION 10 ML IV (12:36)
[2024-06-13] MEDS: ROCEPHIN 1000 MG IV (12:36)
[2024-06-13 14:00] VITALS: BP 110/70
--- NOTE | 2024-06-13 14:00 | CM ---
Patient seen at bedside today with physicians. Patient for discharge home today. Patient with no needs, to transport home. CM will continue to follow for discharge planning needs.
Plan; home with no needs anticipated.
--- NOTE | 2024-06-13 14:50 | PTCARENOTE ---
Reviewed discharge instructions with patient. Patient verbalizes understanding of teaching and denies questions at this time. IV removed. Patient left via wheelchair with staff member. present to transport home.
--- NOTE | 2024-06-13 16:50 | W.PN.HOSP.TC ---
Addendum entered and electronically signed by Liane Murray MD 06/13/24 17:55:
I saw and evaluated the patient independently. I reviewed the resident�s note and agree with findings and plan as documented by Dr. Garcia.
GENERAL: well developed, well nourished, female in no apparent distress
HEENT: NC/AT--no O2 requirements
HEART: regular rate and rhythm, +S1, +S2
LUNGS : clear to auscultation bilaterally
ABDOM: soft, nontender, nondistended, + bowel sounds
EXT: no cyanosis, clubbing, or edema
NEUROLOGIC: grossly intact
: no flank tenderness
Sepsis on presentation secondary to left sided pyelonephritis/ascending E. coli UTI--CT abdomen/pelvis findings consistent with pyelonephritis or ascending UTI--cont ceftriaxone--blood cultures neg--urine culture positive for E. coli--shaffer
sensitive--will send home on Keflex TID to complete a 10 day total course
Essential hypertension--Continue current therapy with clonidine, bisoprolol fumarate, hydrochlorothiazide--Blood pressures currently managed well
Type 2 diabetes--Hb A1c at 6.3%--Sliding scale insulin as needed, Accu-Cheks--Holding home medications of Jardiance, metformin--Also started on Ozempic recently
Elevated LFTs--Possibly secondary from sepsis--Might also be contributed to by her medications including Ozempic, metformin--Continue monitoring CMP and trend LFTs for now
DVT proph--SCDs
Code status--Full code
d/c
Original Note:
Today's Communication/Plan
-
Patient discharged home on Keflex 500mg TID for 6 more days of treatment (10 days total). Will need to follow up with PCP regarding elevated liver enzymes
Assessment / Plan
Assessment / Plan
Assessment:
50-year-old female with a past medical history of hypertension and type 2 diabetes presented to the [facility] ED on 06/10/24 due to recent history of increased left flank plain, hematuria, fever and malaise. The symptoms had started
initially last week when she noticed some blood in her urine. This continued to get worse and she developed left flank pain over the weekend along with her fever and general fatigue and malaise. In the ED she was found to have fever, be
tachycardic, and have leukocytosis. On the CT abdomen/pelvis, she was found to have mild perinephric stranding surrounding the left kidney which were consistent with possible pyelonephritis/ascending urinary tract infection. Patient was started on
ceftriaxone and IV fluids in the ED and admitted to the hospital. Currently after treatment patient is feeling much better and reports that her symptoms are much improved. Patient to be discharged home on Keflex 500mg TID for 6 more days of
treatment (10 days total)
CT Abd/pel Without Iv Or Oral (06/11/2024):
1. Mild perinephric stranding surrounding the left kidney, and stranding surrounding the proximal left ureter. No hydronephrosis or stone. Findings may related to pyelonephritis/ascending urinary tract infection.
2. Mild wall thickening involving the urinary bladder, which may be related to nondistention or mild cystitis.
3. Colonic diverticulosis without evidence of diverticulitis.
4. Cholelithiasis without evidence of acute cholecystitis.
Plan:
# Sepsis on presentation secondary to left sided pyelonephritis/ascending UTI
-Patient presented with fever/tachycardia/leukocytosis and met the criteria for sepsis
-CT abdomen/pelvis findings as above, consistent with pyelonephritis or ascending UTI
-Patient started on IV antibiotics with ceftriaxone
-Urine culture showed growth with E. coli
-Blood culture showed no growth
-Patient able to tolerate diet
-Patient received Day 4 of Ceftriaxone
-cultures showed E.Coli that is shaffer-sensitive
-to discharge patient home on Keflex 500mg TID for 6 more days of treatment (10 days total)
# Benign hypertension
-Continue current therapy with clonidine, bisoprolol fumarate, hydrochlorothiazide
-Blood pressures currently managed well
# Type 2 diabetes
-Hb A1c at 6.3%
-Sliding scale insulin as needed, Accu-Cheks
-Holding home medications of Jardiance, metformin
-Also started on Ozempic recently
# Elevated LFTs
-Possibly secondary from sepsis
-Might also be contributed to by her medications including Ozempic, metformin
-LFTs trending down slowly
-Counseled her to follow up with her PCP outpatient regarding increased LFTs and regarding when to resume medications such as Ozempic
DVT prophylaxis: SCDs
Full code
Anticipated Discharge: Today
Subjective/Interval History
-
Date of Service: June 13, 2024
Patient was feeling well today and ready to go home. No acute complaints or concerns.
Objective Data
-
Labs:
Laboratory Results
06/13/24
06:20
WBC 5.6
Hgb 10.9 L
Hct 32.5 L
Plt Count 212 D
Sodium 145
Potassium 4.4
Chloride 109 H
Carbon Dioxide 29
BUN 13
Creatinine 0.8
Glucose 117 H
Calcium 8.9
Vital Signs:
Vital Signs
Temp Pulse Resp BP Pulse Ox
98 F 86 16 110/70 99
06/13/24 14:00 06/13/24 14:00 06/13/24 14:00 06/13/24 14:00 06/13/24 14:00
I&O
06/12/24 06/13/24 06/14/24
06:59 06:59 06:59
Intake Total 2700 / 2700 360 / 360 240 / 240
Balance 2700 / 2700 360 / 360 240 / 240
Review of Systems
-
History Source: Patient
Constitutional: Denies Fever, Fatigue, Chills or Weakness
EENT: Reports No Symptoms Reported
Respiratory: Denies Cough, Trouble Breathing or Wheezing
Cardiac: Denies Chest Pain, Diaphoresis or Palpitations
Abdomen/GI: Denies Abdominal Pain, Nausea, Vomiting or Diarrhea
Genitourinary: Denies Flank Pain
Musculoskeletal: Reports No Symptoms
Skin: Reports No Symptoms
Neuro: Denies Headache, Weakness or Lightheadedness
Physical Exam
-
General: Well Developed, Well Nourished, No Apparent Distress, Comfortable and Conversant
HEENT: Normocephalic and Atraumatic
Respiratory: Clear to Auscultation and Non Labored Respirations
Cardiac: Regular Rhythm and S1/S2
GI: Soft, Nontender and Nondistended
Genito-urinary: No Costovertebral Tender
Musculoskeletal: No Clubbing, No Cyanosis and No Edema
Skin: Warm
Neuro: Awake, Alert and Oriented
Psych: Calm
Data Reviewed
-
Labs: Labs Reviewed by me, Discussed with Physician, Discussed with Nurse and Discussed with Patient
--- NOTE | 2024-06-13 17:27 | W.DCSUMMARY ---
Addendum entered and electronically signed by Liane Murray MD 06/13/24 18:12:
Read, reviewed, and agree. See same day progress note for additional details. Time spent coordinating care, DC planning, review of DC plan of care with resident, transition of care, review of records in EMR, med rec, consults, notes, d/w
consultants, nursing, family, and CM = 23 minutes
Original Note:
Discharge Summary
Discharge Data
Date of Admission: 06/11/24
Date of Discharge: 06/13/24
-
Pending Results: No
Hospital Course
Discharging Physician : Dr. Rufino Garcia, Dr. Liane Murray
�
Disposition�:��Home
�
Primary�care�physician�: Betina Rivero NP
�
Principal�Discharge�Diagnosis�:�Sepsis on presentation secondary to left sided pyelonephritis/ascending UTI
�
Chronic�Discharge�Diagnosis:�
Essential Hypertension
Type 2 Diabetes
Elevated LFTs
�
Hospital�Course�:��
50-year-old female with a past medical history of hypertension and type 2 diabetes presented to the [facility] ED on 06/10/24 due to recent history of increased left flank plain, hematuria, fever and malaise. The symptoms had started
initially last week when she noticed some blood in her urine. This continued to get worse and she developed left flank pain over the weekend along with her fever and general fatigue and malaise. In the ED she was found to have fever, tachycardia,
and leukocytosis meeting the criteria for sepsis. Urine cultures and blood cultures were taken. On the CT abdomen/pelvis, she was found to have mild perinephric stranding surrounding the left kidney which were consistent with possible
pyelonephritis/ascending urinary tract infection. Patient was started on Ceftriaxone and IV fluids in the ED and admitted to the hospital. Patient was also found to have elevated liver enzymes which were thought to be due to her recent Ozempic plus
metformin use. Patient continued treatment with IV Ceftriaxone and continued feeling much better. Patient's blood cultures were negative but her urine cultures grew shaffer sensitive E.coli. Patient was discharged home on Keflex 500mg TID for 6 more
days of treatment (10 days total). Patient advised to follow up with her PCP and get follow up CMP to check her liver enzymes in the outpatient setting.
Important�imaging�findings�:
CT Abd/pel Without Iv Or Oral (06/11/2024):
1. Mild perinephric stranding surrounding the left kidney, and stranding surrounding the proximal left ureter. No hydronephrosis or stone. Findings may related to pyelonephritis/ascending urinary tract infection.
2. Mild wall thickening involving the urinary bladder, which may be related to nondistention or mild cystitis.
3. Colonic diverticulosis without evidence of diverticulitis.
4. Cholelithiasis without evidence of acute cholecystitis.
Procedure�findings�:��None
�
Discharge Plan
-
Patient Disposition: Home (Routine Discharge)
Discharge Diagnosis/Procedures: Sepsis on presentation secondary to left sided pyelonephritis/ascending UTI
Essential Hypertension
Type 2 Diabetes
Elevated LFTs
Condition: Good
Diet: Low Cholesterol and Diabetic, Carb Controlled
Activity: No restrictions
Additional Activity: Return to work on 06/18/2024
Driving Restrictions: As prior to admission
Bathing Restrictions: None
Blood Work: CMP in 1 week for elevated liver enzymes
Specialty Instructions: Weigh Daily- Call MD for wt gain/loss 3 lbs overnight/5 lbs in 1 week
Referrals:
Betina Rivero CRNP [Family Provider] - in less than 1 week
Additional Discharge Medication Instructions: Follow up with PCP within 1 week
Get CMP in 1 week for your elevated liver enzymes
Take 1 cephalexin 500 mg capsule 3 times a day for 6 days starting tomorrow
Prescriptions:
New
cephalexin 500 mg capsule
500 mg PO TID 6 Days Qty: 18 0RF
Continued
atorvastatin 40 mg Tablet
40 mg PO QPM
bisoprolol-hydrochlorothiazide 10-6.25 mg Tablet
1 tab PO DAILY
clonidine HCl 0.2 mg Tablet
0.2 mg PO QPM
metformin 500 mg Tablet Extended Release 24hr
500 mg PO BID
Jardiance 25 mg Tablet
25 mg PO DAILY
therapeutic multivitamin Tablet
1 tab PO DAILY
acetaminophen 650 mg Tablet Extended Release
1,300 mg PO Q8HPRN PRN (Reason: mild pain)
Held
Ozempic 0.25 mg or 0.5 mg (2 mg/3 mL) Pen Injector
0.5 mg SC MO
Hold Instructions: Hold until seen by PCP, due to elevated LFTs
Discharge Orders:
Discharge Patient (As Directed); Ordered 06/13/24
Ordered By: Rufino Garcia
Discharge Date and Time
Discharge Date/Time: 06/13/24 15:20
Print Language: ARABIC
== END 2024-06-13 15:20 | disposition home or self-care (01) | DRG 872 ==
LOC: 4 EAST ACU 03:00
PROVIDERS: Emergency Medicine; ADMITTING PHYSICIAN Hospitalist; ATTENDING PHYSICIAN Internal Medicine; EMERGENCY PHYSICIAN Emergency Medicine; FAMILY PHYSICIAN Nurse Practitioner Adult Health
DX: A41.9 Sepsis, unspecified organism (principal); N12 Tubulo-interstitial nephritis, not specified as acute or chronic; B96.20 Unspecified Escherichia coli [E. coli] as the cause of diseases classified elsewhere; I10 Essential (primary) hypertension; E11.9 Type 2 diabetes mellitus without complications; F17.200 Nicotine dependence, unspecified, uncomplicated; Z79.84 Long term (current) use of oral hypoglycemic drugs; Z83.3 Family history of diabetes mellitus; K57.30 Diverticulosis of large intestine without perforation or abscess without bleeding; K80.20 Calculus of gallbladder without cholecystitis without obstruction
CPT/HCPCS: 74176; 80048; 80053; 81003; 81015; 82962; 83036; 83605; 83690; 85025; 85027; 87040; 87077; 87086; 87186; 96361; 96374; 99285

== ENCOUNTER 2024-08-02 06:23 | Day surgery (SDC) | payer OTHER, SELFPAY ==
[2024-08-02 07:17] LABS: Glucose - Point of Care 110 mg/dl (70-99)
== END 2024-08-02 08:46 | disposition home or self-care (01) ==
LOC: GI 06:23
PROVIDERS: ATTENDING PHYSICIAN Internal Medicine
DX: Z12.11 Encounter for screening for malignant neoplasm of colon (principal); K57.30 Diverticulosis of large intestine without perforation or abscess without bleeding; D12.3 Benign neoplasm of transverse colon; K63.5 Polyp of colon
CPT/HCPCS: 45385; 45380; 88305; 82962